=== PATIENT | female | born 1950 | race Caucasian/White ===

== ENCOUNTER 2016-09-12 09:22 | Observation (INO) ==
--- NOTE | 2016-09-12 09:37 | Emergency Department Note ---
Disposition Clinical Impression: Acute kidney injury Diabetes type 2, uncontrolled Qualifiers: Diabetes mellitus complication status: with hyperglycemia Diabetes mellitus buttermaker helper insulin use: with buttermaker helper use Qualified Code(s): E11.65 - Type 2 diabetes mellitus with hyperglycemia; Z79.4 - buttermaker helper (current) use of insulin Disposition: Admitted As Inpatient Condition: Fair Referrals: Adele Martinez [Primary Care Provider] - Forms: ED Satisfaction Letter Time of Disposition: 12:38 Dizziness HPI - General Chief Complaint: ED Dizziness Stated Complaint: fall, dizziness Time Seen by Provider: 09/12/16 09:33 Source: patient Limitations: no limitations Nursing Notes Reviewed: Yes Vital Signs Reviewed: Yes - History of Present Illness HPI Narrative: 65-year-old was over in orthopedics became lightheaded and fell back against the wall onto her bottom. No loss of consciousness. Patient states she's done this in the past. She actually has seen 4 or 5 doctors about this and has had a complete workup including cardiology and neurology. She's been told that they cannot find why she does this. Pt Subjective Complaint: lightheadedness, near syncope Onset (ago): Just MANAGER BAKERY Timing: sudden onset Description: lightheadedness History of similar episodes: Yes History of trauma: No Severity: none Associated symptoms: Denies: chest pain, confusion, diaphoresis, fever, chills, shortness of breath, syncope, weakness, vision changes, nausea, vomiting, palpitations - Related Data Home Medications Medication Instructions Recorded Confirmed Amitriptyline HCl 75 mg PO HS 06/12/16 06/12/16 Aspirin 325 mg PO DAILY 06/12/16 06/12/16 Donepezil [Aricept] 10 mg PO HS 06/12/16 06/12/16 FLUoxetine HCl [Prozac] 20 mg PO DAILY 06/12/16 06/12/16 Insulin ASPART [Novolog] 20 unit SQ TID 06/12/16 06/12/16 Insulin Glargine,Hum.rec.anlog 40 unit SQ BID 06/12/16 06/12/16 [Lantus Solostar] Latanoprost [Xalatan] 1 drop BOTH EYES QPM 06/12/16 06/12/16 Losartan Potassium [Cozaar] 50 mg PO DAILY 06/12/16 06/12/16 Memantine HCl 10 mg PO BID 06/12/16 06/12/16 Metoprolol XL (24 HR) Succ [Toprol 25 mg PO HS 06/12/16 06/12/16 Xl] Previous Rx's Medication Instructions Recorded OxyCODONE Immed Rel [Roxicodone 5 5 - 10 mg PO Q6HR PRN #40 tablet 06/11/16 MG] Allergies Allergy/AdvReac Type Severity Reaction Status Date / Time No Known Allergies Allergy Verified 09/12/16 09:25 Constitutional: Denies: fever, chills, weakness, weight change Eyes: Denies: eye pain, eye discharge, vision change ENT ED: Denies: ear pain, throat pain, dental pain, hearing loss, epistaxis, congestion, dysphagia Cardiovascular: Denies: chest pain, palpitations, dyspnea on exertion, edema, syncope Respiratory: Denies: cough, dyspnea, wheezes, hemoptysis, stridor Gastrointestinal: Denies: abdominal pain, nausea, vomiting, diarrhea, constipation, hematemesis, melena, hematochezia Genitourinary: Denies: dysuria, frequency, hematuria, discharge Musculoskeletal: Denies: back pain, neck pain, arthralgia, myalgia Integumentary: Denies: rash, abrasion, lesions Neurological: Reports: vertigo. Denies: headache, weakness, numbness, paresthesias, confusion, abnormal gait Psychiatric: Denies: anxiety, depression, suicidal thoughts, homicidal thoughts , auditory hallucinations, visual hallucinations Endocrine: Denies: fatigue Hematological/Lymphatic: Denies: easy bleeding, easy bruising Allergic/Immunologic: Denies: facial swelling, urticaria Past Medical History - Past Medical History Medical history: Reports: CHF, CVA, hypertension, kidney stones Psychiatric history: Reports: no psych history - Social History Smoking Status: Never smoker Smokeless Tobacco Status: No Alcohol use: Reports: none Drug use: Reports: none Physical Exam - General Limitations: no limitations General appearance: alert, in no apparent distress - Head Head exam: atraumatic, normocephalic, normal inspection - Eye Eye exam: Present: normal appearance, PERRL, EOMI - ENT ENT exam: normal exam, normal oropharynx, mucous membranes moist - Neck Neck exam: Present: normal inspection, full ROM, trachea midline - Chest Chest inspection: Present: normal inspection, symmetric chest wall rise - Respiratory Respiratory exam: Present: normal lung sounds bilaterally - Cardiovascular Cardiovascular exam: Present: regular rate, normal rhythm, normal heart sounds - Abdominal Exam Abdominal exam: Present: soft, Non-Tender. Absent: tenderness, distention, guarding, rebound, rigidity - Extremities Exam Extremities exam: Present: normal inspection, full ROM. Absent: tenderness, pedal edema - Expanded Lower Extremity Exam Neurovascular/Tendon exam: Absent: motor deficit, sensory deficit, tendon deficit Gait: not tested/not observed - Back Exam Back exam: Present: normal inspection, full ROM. Absent: tenderness - Neurological Exam Neurological exam: Present: alert, oriented X3. Absent: motor sensory deficit - Psychiatric Psychiatric exam: Present: normal affect, normal mood - Skin Skin exam: Present: warm, dry, intact, normal color Course Course Narrative: 65-year-old type II diabetic who comes in with dizziness from her orthopedic surgeon's office. Workup here her she has no focal deficits however her glucose is 690 and has acute kidney injury. - Reevaluation(s) Reevaluation #1: I did review lab work from yesterday had an outside facility and her glucose was 509, glucose today is 690. Time: 10:02 - Consultations Consultation #1: Discussed with Dr. Schroeder, admit. Time: 12:29 Vital Signs Temperature 98.1 F 09/12/16 09:23 Pulse Rate 82 09/12/16 09:23 Respiratory Rate 16 09/12/16 09:23 Blood Pressure 128/62 09/12/16 09:23 O2 Sat by Pulse Oximetry 95 09/12/16 09:23 Temperature 98.1 F 09/12/16 09:23 Pulse Rate 78 09/12/16 10:30 Respiratory Rate 16 09/12/16 10:30 Blood Pressure 125/79 09/12/16 10:30 O2 Sat by Pulse Oximetry 94 L 09/12/16 10:30 Oxygen Delivery Oxygen Delivery Room Air Dizziness - Lab Data Result diagrams: 09/12/16 09:40 09/12/16 09:40 Lab Results 09/12/16 09/12/16 09/12/16 Range/Units 09:40 09:40 09:40 WBC 13.0 H (4.3-11.1) K/mcL RBC 4.53 (3.82-4.97) M/mcL Hgb 12.4 (11.5-15.4) g/dL Hct 39.9 (35.3-44.9) % MCV 88.1 (83.0-100.0) fL MCH 27.4 L (28.0-33.3) pg MCHC 31.1 L (31.6-35.5) g/dL RDW 13.8 (11.5-14.5) % Plt Count 303 (140-400) K/mcL MPV 10.0 (9.4-12.4) fL Immature Gran % 0.3 (0-4) % Seg Neutrophils % 60.8 % Lymphocytes % 30.2 % Monocytes % 6.3 % Eosinophils % 2.0 % Basophils % 0.4 % Neutrophils # 7.9 (1.6-8.9) K/mcL Lymphocytes # 3.9 (0.6-4.6) K/mcL Monocytes # 0.8 (0.0-1.3) K/mcL Eosinophils # 0.3 (0.0-0.6) K/mcL Basophils # 0.1 (0.0-0.2) K/mcL Sodium 135 L (136-145) mEq/L Potassium 4.5 (3.5-4.5) mEq/L Chloride 96 L (98-109) mEq/L Carbon Dioxide 29 (19-29) mEq/L BUN 44 H (7-20) mg/dL Creatinine 1.74 H (0.57-1.11) mg/dL Est GFR ( Amer) 35 L (> 60) Est GFR (Non-Af Amer) 29 L (> 60) BUN/Creatinine Ratio 25 (6-26) Glucose 697 H* (70-99) mg/dL POC Glucose (58-89) Calculated Osmolality 324 H (280-300) Calcium 9.5 (8.6-10.8) mg/dL Troponin I 0.01 (0-0.03) ng/mL Beta-Hydroxybutyric Acd 0.19 (0.02-0.27) mmol/L Urine Color (Yellow) Urine Clarity (Clear) Urine pH (5.0-8.0) pH Units Ur Specific [place] (1.010-1.025) Urine Protein (Neg-Trace) mg/dL Urine Glucose (UA) (Normal) mg/dL Urine Ketones (Negative) mg/dL Urine Blood (Negative) Urine Nitrite (Negative) Urine Bilirubin (Negative) Urine Urobilinogen (Normal) mg/dL Ur Leukocyte Esterase (Negative) Ur Culture Indicated? (NO) 09/12/16 09/12/16 09/12/16 Range/Units 10:45 11:43 11:44 WBC (4.3-11.1) K/mcL RBC (3.82-4.97) M/mcL Hgb (11.5-15.4) g/dL Hct (35.3-44.9) % MCV (83.0-100.0) fL MCH (28.0-33.3) pg MCHC (31.6-35.5) g/dL RDW (11.5-14.5) % Plt Count (140-400) K/mcL MPV (9.4-12.4) fL Immature Gran % (0-4) % Seg Neutrophils % % Lymphocytes % % Monocytes % % Eosinophils % % Basophils % % Neutrophils # (1.6-8.9) K/mcL Lymphocytes # (0.6-4.6) K/mcL Monocytes # (0.0-1.3) K/mcL Eosinophils # (0.0-0.6) K/mcL Basophils # (0.0-0.2) K/mcL Sodium (136-145) mEq/L Potassium (3.5-4.5) mEq/L Chloride (98-109) mEq/L Carbon Dioxide (19-29) mEq/L BUN (7-20) mg/dL Creatinine (0.57-1.11) mg/dL Est GFR ( Amer) (> 60) Est GFR (Non-Af Amer) (> 60) BUN/Creatinine Ratio (6-26) Glucose (70-99) mg/dL POC Glucose 526 H* 476 H* (58-89) Calculated Osmolality (280-300) Calcium (8.6-10.8) mg/dL Troponin I (0-0.03) ng/mL Beta-Hydroxybutyric Acd (0.02-0.27) mmol/L Urine Color Yellow (Yellow) Urine Clarity Clear (Clear) Urine pH 6.0 (5.0-8.0) pH Units Ur Specific [place] 1.028 H (1.010-1.025) Urine Protein Negative (Neg-Trace) mg/dL Urine Glucose (UA) >=1000 H (Normal) mg/dL Urine Ketones Negative (Negative) mg/dL Urine Blood Negative (Negative) Urine Nitrite Negative (Negative) Urine Bilirubin Negative (Negative) Urine Urobilinogen Normal (Normal) mg/dL Ur Leukocyte Esterase Negative (Negative) Ur Culture Indicated? NO (NO) - EKG Data EKG attestation: Yes I reviewed and interpreted this EKG. EKG shows normal: sinus rhythm Rate: normal Rhythm: NSR Interpretation: no acute changes
[2016-09-12 09:47] LABS: Basophils # 0.1 K/mcL (0.0-0.2); Basophils % 0.4 %; Eosinophils # 0.3 K/mcL (0.0-0.6); Hematocrit 39.9 % (35.3-44.9); Hemoglobin 12.4 g/dL (11.5-15.4); Immature Granulocytes % 0.3 % (0-4); Lymphocytes # 3.9 K/mcL (0.6-4.6); Lymphocytes % 30.2 %; Mean Corpuscular HGB Conc 31.1 g/dL (31.6-35.5); Mean Corpuscular Hemoglobin 27.4 pg (28.0-33.3); Mean Corpuscular Volume 88.1 fL (83.0-100.0); Monocytes # 0.8 K/mcL (0.0-1.3); Monocytes % 6.3 %; Neutrophils # 7.9 K/mcL (1.6-8.9); Platelet Count 303 K/mcL (140-400); Red Blood Count 4.53 M/mcL (3.82-4.97); Red Cell Distribution Width 13.8 % (11.5-14.5); Segmented Neutrophils % 60.8 %
[2016-09-12 09:58] LABS: Calcium 9.5 mg/dL (8.6-10.8); Potassium 4.5 mEq/L (3.5-4.5)
[2016-09-12 10:22] LABS: Beta-Hydroxybutyric Acid 0.19 mmol/L (0.02-0.27)
[2016-09-12] MEDS ORDERED: Insulin Regular, Human 100 UNIT/ML IV ONE (10:36)
[2016-09-12] MEDS ORDERED: 0.9 % Sodium Chloride 500 ML IVC ONE (10:36)
[2016-09-12 10:51] LABS: Bilirubin,Urine Negative (Negative); Blood,Urine Negative (Negative); Clarity,Urine Clear (Clear); Color,Urine Yellow (Yellow); Glucose,Urine (UA) >=1000 mg/dL (Normal); Ketones,Urine Negative (Negative); Leukocyte Esterase,Urine Negative (Negative); Nitrite,Urine Negative (Negative); Protein,Urine Negative (Neg-Trace); Specific Gravity,Urine 1.028 (1.010-1.025); Urobilinogen,Urine Normal (Normal)
[2016-09-12] MEDS ORDERED: Naloxone 0.4 MG/ML INJ IVP PRN (13:50)
[2016-09-12] MEDS ORDERED: *HR* Dextrose 50 % in Water (Syg) 50 ML SYRINGE IVP PRN (13:52)
[2016-09-12] MEDS ORDERED: Dextrose Gel 15 GM PO PRN ×2 (13:52)
[2016-09-12] MEDS ORDERED: D5% in Water 1,000 ML IV PRN (13:52)
[2016-09-12] MEDS ORDERED: 0.9 % Sodium Chloride 1,000 ML IVC SCH (14:00)
--- NOTE | 2016-09-12 14:04 | Internal Med History&Physical ---
Date of Encounter: 09/12/16 Time of Encounter: 14:03 Assessment and Plan (1) Dizziness Current visit: Yes Status: Acute Possibly secondary to autonomic neuropathy from uncontrolled DM, and hypoglycemia EKG non-ischemic Head CT, CXR unremarkable Obtain Carotid doppler Fall precautions PT/OT review (2) Acute on chronic renal insufficiency Current visit: Yes Status: Acute CKD stage is unknown, possibly stage II per patient history Already received hydration Check renal USS Monitor chem Avoid nephrotoxins (3) CHF (congestive heart failure) Current visit: Yes Status: Chronic No signs of fluid overlaod No JVD, no S3, no edema Will obtain ECHO for records Will monitor as patient is getting IVF Resume home meds-ARB, BB, ASA Qualifiers: Congestive heart failure type: systolic Congestive heart failure chronicity : chronic Qualified Code(s): I50.22 - Chronic systolic (congestive) heart failure (4) Diabetes type 2, uncontrolled Current visit: Yes Status: Chronic Uncontrolled, with hyperglycemia , possibly secondary to non-compliance with diets Basal, prandial, supplemental insulin IVF hydration Patient with no neurologic signs, BOH butyrate is WNL Diabetic diet Monitor FS ACHS senior health educator Qualifiers: Diabetes mellitus complication status: with hyperglycemia Diabetes mellitus regional intermodal truck driver insulin use: with senior care use Qualified Code(s): E11.65 - Type 2 diabetes mellitus with hyperglycemia; Z79.4 - ad terminal makeup operator (current) use of insulin (5) HTN (hypertension) Current visit: Yes Status: Chronic Resume home meds Qualifiers: Hypertension type: essential hypertension Qualified Code(s): I10 - Essential (primary) hypertension (6) Hypothyroidism Current visit: Yes Status: Chronic Clinically euthyroid Resume synthroid Check TSH a.m Qualifiers: Qualified Code(s): E03.9 - Hypothyroidism, unspecified Internal Medicine - H&P: HPI Chief complaint: Dizziness, fall Admitted From: Home Plans for Post Hospital Care: Home History of present illness: Ms. 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 She hit her head but denies any LOC, she denies syncope, she was aware she fell and remembers all preceding events. She denies chest pain, palpitation, feeling of impending doom, diaphoresis prior to fall She reports feeling dizzy prior to incident. No convulsive-like movements, no tongue biting Patient reports prior hx of same with multiple work-ups in the past including Carotid doppler and ECHO last done 3 months ago with ECHO showing CHF (improved from E 20s to 40s per patient). She denies recent falls, no headaches She also has a recent diagnosis of dementia for which she is taking medications. She reports polyuria,polydipsia in recent few days. DM has been uncontrolled but she is complaint with meds Denies other symptoms She is full code Past Med Surg Social Fam HX - Past Medical History Medical history: CHF, CVA, hypertension, kidney stones Psychiatric history: no psych history - Past Surgical History Surgical History: orthopedic, other (R shoulder arthroplasty) - Social History Smoking Status: Never smoker Smokeless Tobacco Status: No Alcohol use: none Drug use: none Internal Medicine - H&P: Meds OxyCODONE Immed Rel [Roxicodone 5 MG] 5 - 10 mg PO Q6HR PRN #40 tablet 06/11/16 [Rx] Aspirin 325 mg PO DAILY 06/12/16 [History] Donepezil [Aricept] 10 mg PO HS 06/12/16 [History] FLUoxetine HCl [Prozac] 20 mg PO DAILY 06/12/16 [History] Insulin ASPART [Novolog] 20 unit SQ TID 06/12/16 [History] Insulin Glargine,Hum.rec.anlog [Lantus Solostar] 40 unit SQ BID 06/12/16 [ History] Latanoprost [Xalatan] 1 drop BOTH EYES QPM 06/12/16 [History] Losartan Potassium [Cozaar] 50 mg PO DAILY 06/12/16 [History] Memantine HCl 10 mg PO DAILY 06/12/16 [History] Metoprolol XL (24 HR) Succ [Toprol Xl] 25 mg PO HS 06/12/16 [History] Amitriptyline [Elavil] 50 mg PO HS 09/12/16 [History] Cyclobenzaprine HCl 5 mg PO DAILY 09/12/16 [History] Levothyroxine [Synthroid] 150 mcg PO DAILY 09/12/16 [History] Allergies Hydromorphone [From Dilaudid] Adverse Reaction (Verified 09/12/16 13:53) See Comments "with full dose i wake up feeling like i can't breath, I'm ok with a half dose " All Systems PM: A 10-system review of systems was performed and is negative for pertinent findings except as documented above in the HPI. - Constitutional Constitutional: no chills, no fever(s), no night sweats - EENT Eyes: no change in vision, no discharge, no pain, no photophobia Nose, mouth and throat: no dysphagia, no nasal discharge, no neck pain, no sore throat - Cardiovascular Cardiovascular ROS IM: lightheadedness, no chest pain, no diaphoresis, no dyspnea, no palpitations, no syncope - Respiratory Respiratory: no cough, no dyspnea, no wheezing, no excessive phlegm production - Gastrointestinal Gastrointestinal: no abdominal pain, no diarrhea, no hematemesis, no hematochezia, no melena, no nausea, no vomiting - Genitourinary Genitourinary: no change in urinary stream, no dysuria, no flank pain, no hematuria - Musculoskeletal Musculoskeletal ROS IM: as per HPI - Integumentary Integumentary IM: as per HPI - Neurological Neurological ROS: as per HPI - Endocrine Endocrine IM: polydipsia, polyuria - Constitutional Vitals: Temp Pulse Resp BP Pulse Ox 98.1 F 69 16 124/74 96 09/12/16 09:23 09/12/16 13:00 09/12/16 13:00 09/12/16 13:00 09/12/16 13:00 Orthostatic vital signs HR/BP sitting 74, 156/82, HR/BP standing 80, 152/75. General appearance: Present: A&O X 3, pleasant, no acute distress - Head Head exam: Present: atraumatic - Eye Eye exam: Present: PERRL, conjuntiva pink, sclera anicteric - ENT ENT exam: Present: mucous membranes moist - Neck Neck exam general surgery: Present: supple, trachea midline. Absent: lymphadenopathy - Respiratory Respiratory exam: Present: CTAB. Absent: accessory muscle use, rales, rhonchi, wheezes - Cardiovascular Cardiovascular exam: Present: RRR, +S1, +S2, systolic murmur. Absent: diastolic murmur, gallop, JVD, rubs - GI/Abdominal GI/Abdominal exam: Present: normal bowel sounds, soft, no peritoneal signs. Absent: distended, tenderness - Extremities Exam Extremities exam: Present: warm, radial pulses palpable and symetrical. Absent : calf tenderness, cyanotic, pedal edema - Neurological Exam Neurological exam: Present: CN II-XII intact, oriented X3, no focal deficits. Absent: pronater drift, facial droop, speech deficit - Skin Skin exam: Present: dry Internal Med - H&P Results - Labs CBC & Chem 7: 09/12/16 09:40 09/12/16 09:40 - EKG Data -: EKG Interpreted by Myself EKG shows normal: sinus rhythm (NSR), ST-T waves (No St segment elevation or depression) Rate: normal - EKG Data Prior EKG available for review: no Interpretation IM: normal EKG
[2016-09-12] MEDS: *HR* Heparin 5,000 UNIT/ML VIAL SQ SCH (16:39)
[2016-09-12] MEDS: Insulin LISPRO 300 UNITS/3 ML VIAL SQ SCH ×2 (16:43→16:44)
[2016-09-12] MEDS ORDERED: Latanoprost 2.5 ML BOTTLE BOTH EYES SCH (18:00)
[2016-09-12] MEDS ORDERED: Insulin DETEMIR 100 UNIT/ML X5UNITS SQ SCH (21:00)
[2016-09-12] MEDS ORDERED: Metoprolol XL (24 HR) Succ 25 MG TAB.ER.24H PO SCH (21:00)
[2016-09-12] MEDS ORDERED: Insulin LISPRO 300 UNITS/3 ML VIAL SQ SCH (21:00)
[2016-09-12] MEDS: *HR* OxyCODONE Immed Rel 5 MG TABLET PO PRN (21:20)
[2016-09-12] MEDS ORDERED: *HR* Morphine 2 MG/ML SYRINGE IVP ONE (23:55)
[2016-09-13] MEDS: *HR* Heparin 5,000 UNIT/ML VIAL SQ SCH ×2 (00:08→08:08)
[2016-09-13] MEDS: *HR* OxyCODONE Immed Rel 5 MG TABLET PO PRN (03:43)
[2016-09-13 06:44] LABS: Basophils % 0.4 %; Eosinophils # 0.3 K/mcL (0.0-0.6); Eosinophils % 2.6 %; Hematocrit 34.7 % (35.3-44.9); Hemoglobin 10.9 g/dL (11.5-15.4); Immature Granulocytes % 0.3 % (0-4); Lymphocytes # 4.9 K/mcL (0.6-4.6); Lymphocytes % 48.2 %; Mean Corpuscular HGB Conc 31.4 g/dL (31.6-35.5); Mean Corpuscular Hemoglobin 27.3 pg (28.0-33.3); Mean Platelet Volume 10.3 fL (9.4-12.4); Monocytes # 0.7 K/mcL (0.0-1.3); Neutrophils # 4.2 K/mcL (1.6-8.9); Platelet Count 227 K/mcL (140-400); Red Blood Count 3.99 M/mcL (3.82-4.97); Red Cell Distribution Width 13.7 % (11.5-14.5); Segmented Neutrophils % 41.5 %
[2016-09-13 06:58] LABS: Calcium 8.8 mg/dL (8.6-10.8); Potassium 4.3 mEq/L (3.5-4.5)
[2016-09-13 07:01] LABS: Hemoglobin A1C 13.1 %
[2016-09-13 07:21] LABS: Thyroid Stimulating Hormone 0.236 mcIU/mL (0.350-4.840)
--- NOTE | 2016-09-13 07:37 | Carotid Imaging Report ---
Carotid Duplex Patient Name:El Caldwell Order Number:[id number] Procedure Date:09/12/2016 Date:1950Age:65 yrs Gender:Female Lt BP:164 / 81 mmHg Rt.BP:161 / 67 mmHgHeart Rate: Location:[facility] Room #: 2A25 Book Shelver:Selena Davis Referring MD:Luis F Schroeder MD plant breeder scientist:DO Anderson Hawkins MD:Sam Ball MD Primary Indications:dizziness Risk Factors Yes/No Hypertension Yes Diabetes Yes Hx of CVA Yes Impressions: The right carotid artery has minimal plaque throughout. The left internal carotid artery has a 60-79% stenosis. Recommendations: Risk factor reduction. Further evaluation recommended if clinically indicated. Follow-up carotid duplex in 6 months. After imaging the patient returned to their room. Findings Carotid Duplex: Right: The right proximal common carotid artery has a PSV of 70 cm/s and a EDV of 16 cm/s. The right mid common carotid artery has a PSV of 74 cm/s and a EDV of 17 cm/s. The right distal common carotid artery has a PSV of 66 cm/s and a EDV of 17 cm/s. There is nonstenotic plaque in the right bifurcation with a PSV of 60 cm/s and a EDV of 19 cm/s. The right proximal internal carotid artery has a PSV of 77 cm/s and a EDV of 20 cm/s. The right mid internal carotid artery has a PSV of 89 cm/s and a EDV of 35 cm/s. The right distal internal carotid artery has a PSV of 89 cm/s and a EDV of 31 cm/s. The right eca has a PSV of 88 cm/s and a EDV of 11 cm/s. The right vertebral artery has a PSV of 43 cm/s and a EDV of 12 cm/s. Left: The left proximal common carotid artery has a PSV of 76 cm/s and a EDV of 16 cm/s. The left mid common carotid artery has a PSV of 60 cm/s and a EDV of 16 cm/s. The left distal common carotid artery has a PSV of 51 cm/s and a EDV of 13 cm/s. The left bifurcation has a PSV of 66 cm/s and a EDV of 16 cm/s. There is 60-79% stenosis in the left proximal internal carotid artery with a PSV of 239 cm/s and a EDV of 53 cm/s. There is smooth, heterogeneous calcified plaque. There is 60-79% stenosis in the left mid internal carotid artery with a PSV of 223 cm/s and a EDV of 61 cm/s. There is smooth, heterogeneous calcified plaque. There is 60-79% stenosis in the left distal internal carotid artery with a PSV of 154 cm/s and a EDV of 46 cm/s. The left eca has a PSV of 84 cm/s and a EDV of 10 cm/s. The left vertebral artery has a PSV of 36 cm/s and a EDV of 9 cm/s. Prior Study: No prior study available for comparison. Carotid Results Right PSV EDV Assessment Proximal CCA 70 16 Normal Mid CCA 74 17 Normal Distal CCA 66 17 Normal Bifurcation 60 19 Non Stenotic Plaque Proximal ICA 77 20 Normal Mid ICA 89 35 Normal Distal ICA 89 31 Normal ECA 88 11 Normal Vertebral Artery 43 12 Normal Left PSV EDV Assessment Proximal CCA 76 16 Normal Mid CCA 60 16 Normal Distal CCA 51 13 Normal Bifurcation 66 16 Normal Proximal ICA 239 53 60-79% stenosis Mid ICA 223 61 60-79% stenosis Distal ICA 154 46 60-79% stenosis ECA 84 10 Normal Vertebral Artery 36 9 Normal Ratio's Updated by Sam Ball MD on 09/13/2016 7:28:06 AM electronically signed on 09/13/2016 7:31:14 AM with status of Final
[2016-09-13] MEDS: Insulin LISPRO 300 UNITS/3 ML VIAL SQ SCH ×4 (08:12→11:49)
[2016-09-13] MEDS ORDERED: Aspirin Enteric Coated 81 MG Tablet PO SCH (09:00)
[2016-09-13] MEDS ORDERED: FLUoxetine 20 MG CAPSULE PO SCH (09:00)
--- NOTE | 2016-09-13 09:34 | ECHO - Doppler Report ---
Echocardiogram Name: El Caldwell Date of Study: 09/12/2016 Date: 1950 Ht: 64.0 in Medical Record#: [id number] Age: 65 Wt: 197.0 lb Gender: Female BSA: 1.94 Order #: [id number] Location: [facility] Room #: 2A25 Reading Physician: Avelina Grey DO Linemarker: Selena Davis Ordering Physician: Luis F Schroeder MD Primary Physician: Adele Martinez DO Indications: History of Congestive heart failure Impressions: LVEF 35-40%. Left ventricle is mildly dilated. There is evidence of mild diastolic dysfunction of the left ventricle. Normal right ventricular size and function. No significant valvular dysfunction. No pulmonary hypertension. Left Ventricular Wall Motion: Rest Echo Findings The apex, apical inferior, mid inferior, basal inferior, apical anterior, mid anterior, basal anterior, apical septal, mid inferior septal, basal inferior septal, apical lateral, mid anterior lateral, basal anterior lateral, mid anterior septal, mid inferior lateral, basal anterior septal and basal inferior lateral cohen were hypokinetic. Findings: Study Quality * Technically adequate exam. ECG Findings * Normal sinus rhythm. Left Atrium * Normal left atrial size. Mitral Valve * Normal mitral valve structure. * No mitral stenosis. * Trace mitral regurgitation. Aortic Valve * No aortic regurgitation. * Trileaflet aortic valve. * Mildly calcified aortic valve leaflets. * No aortic stenosis. Tricuspid Valve * Tricuspid valve not well visualized. * Trace tricuspid regurgitation. * Estimated RA pressure is 3 mmHg. * Estimated RVSP is 21 mmHg. * No pulmonary hypertension. Pulmonic Valve * Pulmonic valve is not well visualized. * No pulmonic stenosis. * No pulmonic regurgitation. Pulmonary Artery * Pulmonary artery not well visualized. Right Ventricle * Normal right ventricular structure and function. Right Atrium * Normal right atrial size. Left Ventricle * Mild left ventricular diastolic dysfunction. * Mildly dilated left ventricle. * LVEF 35-40%. Interatrial Septum * No evidence of PFO by color Doppler. IVC * Normal IVC dimensions and inspiratory collapse. Pericardium * There is no pericardial effusion present. Aorta * Normally sized aortic root. History Hypertension Diabetes Congestive Heart Failure Measurements: BP: 161/ 67 2D Normal Values IVSd: .80 cm 0.6 - 1.0 cm LVIDd: 5.50 cm 3.7 - 5.6 cm LVPWd: 1.00 cm 0.6 - 1.1 cm LVIDs: 4.20 cm 1.5 - 3.6 cm AO: 2.20 cm < 4.0 cm LA: 4.10 cm 2.0 - 4.0cm %FS: 23.60 cm >25 % LA volume: 42 Mitral Valve Peak E:.50 m/sec Peak A:1.05 m/sec E/A Ratio:0.5 Peak E' Lat Donta:5.46 cm/s Peak E' Med Donta:3.61 cm/s E/E' Lat Ratio:9.2 E/E' Med Ratio:13.9 Tricuspid Valve TV Regurg Peak Grad: 18.00mmHg TV Regurg Peak Donta: 2.13m/sec Updated by Avelina Grey on 09/13/2016 9:28:05 AM electronically signed on 09/13/2016 9:29:22 AM with status of Final Wall Motion Scott: 1=Normal, 2=Hypokinesis, 3=Akinesis, 4=Dyskinesis, 5=Aneurysmal, 6=Hyperkinetic, X=Not Visualized (Blank)=Missing
[2016-09-13] MEDS ORDERED: 0.9 % Sodium Chloride 1,000 ML ONE (10:23)
[2016-09-13] MEDS ORDERED: 0.9 % Sodium Chloride 1,000 ML IVC SCH (10:30)
[2016-09-13 13:30] VITALS: BP 127/65
--- NOTE | 2016-09-13 13:34 | Electrocardiograph Report ---
[facility] Test Date: 2016-09-12 Pat Name: El Caldwell Department: 102 Room: 2A25 Gender: F Apprentice: Msc : 1950 Requested By: Jemal Modi Order Number: [id number] Reading MD: Cady Richard Measurements Intervals Susan Rate: 84 P: 38 NJ: 179 QRS: -7 QRSD: 114 T: 81 QT: 398 QTc: 438 Interpretive Statements SINUS RHYTHM POSSIBLE LEFT VENTRICULAR HYPERTROPHY [VOLTAGE CRITERIA PLUS LAE OR QRS WIDENING] ST DEVIATION AND MODERATE T-WAVE ABNORMALITY, CONSIDER LATERAL ISCHEMIA [-0.1+ mV T WAVE IN I/aVL/V5/V6] Electronically Signed On 09-13-16 13:33:22 EST by Cady Richard
--- NOTE | 2016-09-13 14:29 | Discharge Summary ---
Date of Encounter: 09/13/16 Time of Encounter: 14:27 - Discharge Diagnosis (1) Orthostatic hypotension Priority: Primary Status: Acute Comments: This is likely secondary to volume depletion from uncontrolled diabetes and hyperosmolar state. Orthostatic vitals were positive. She was given intravenous normal saline bolus, with improvement of her symptoms and orthostatic hypotension. I recommended the patient, close follow-up with her primary care physician to adjust her insulin and management of diabetes. (2) Type 2 diabetes mellitus with hyperosmolarity without nonketotic hyperglycemic-hyperosmolar coma (nkhhc) Priority: Secondary Status: Acute Comments: Increased the dose of insulin and advised close follow-up with her primary care physician for titration of her insulin and possible referral to orthoptist (3) Acute on chronic renal insufficiency Priority: Secondary Status: Acute Comments: This is likely secondary to volume depletion from uncontrolled diabetes and hyperosmolar state. Orthostatic vitals were positive. She was given intravenous normal saline bolus, with improvement of her symptoms and orthostatic hypotension. I recommended the patient, close follow-up with her primary care physician to adjust her insulin and management of diabetes. (4) Diabetes type 2, uncontrolled Priority: Secondary Status: Chronic Comments: Hemoglobin A1c is 13.1%. Increased the dose of insulin and advised close follow -up with her primary care physician for titration of her insulin and possible referral to orthoptist. Diabetes education was offered Qualifiers: Diabetes mellitus complication status: with hyperglycemia Diabetes mellitus senior living insulin use: with senior living use Qualified Code(s): E11.65 - Type 2 diabetes mellitus with hyperglycemia; Z79.4 - ad terminal makeup operator (current) use of insulin (5) HTN (hypertension) Priority: Secondary Status: Chronic Qualifiers: Hypertension type: essential hypertension Qualified Code(s): I10 - Essential (primary) hypertension (6) Hypothyroidism Priority: Secondary Status: Chronic Qualifiers: Qualified Code(s): E03.9 - Hypothyroidism, unspecified (7) CHF (congestive heart failure) Priority: Secondary Status: Chronic Comments: Echocardiogram showed LV ejection fraction of 35-40% Qualifiers: Congestive heart failure type: systolic Congestive heart failure chronicity : chronic Qualified Code(s): I50.22 - Chronic systolic (congestive) heart failure (8) Carotid stenosis, left Priority: Secondary Status: Chronic Comments: Carotid duplex showed 60-79% stenosis of the left internal carotid artery. Patient apparently had TIA affecting right side of the body. She reports that she is being followed by diesel fleet mechanic. will defer follow up to the PCP / diesel fleet mechanic. She indicated that she was taking cholesterol medication prior to this admission. No statin was noted on home medications list. PCP to please consider starting a statin, if she was not on a statin. - Discharge Medications Home Medications: OxyCODONE Immed Rel [Roxicodone 5 MG] 5 - 10 mg PO Q6HR PRN #40 tablet 06/11/16 [Rx] Aspirin 325 mg PO DAILY 06/12/16 [History] Donepezil [Aricept] 10 mg PO HS 06/12/16 [History] FLUoxetine HCl [Prozac] 20 mg PO DAILY 06/12/16 [History] Insulin ASPART [Novolog] 25 unit SQ TID 06/12/16 [History] Insulin Glargine,Hum.rec.anlog [Lantus Solostar] 40 unit SQ BID 06/12/16 [ History] Latanoprost [Xalatan] 1 drop BOTH EYES QPM 06/12/16 [History] Memantine HCl 10 mg PO DAILY 06/12/16 [History] Metoprolol XL (24 HR) Succ [Toprol Xl] 25 mg PO HS 06/12/16 [History] Cyclobenzaprine HCl 5 mg PO DAILY 09/12/16 [History] Levothyroxine [Synthroid] 150 mcg PO DAILY 09/12/16 [History] Allergies/Adverse Reactions: Allergies Hydromorphone [From Dilaudid] Adverse Reaction (Verified 09/12/16 13:53) See Comments "with full dose i wake up feeling like i can't breath, I'm ok with a half dose " Procedures/tests Complete & Pending: Procedures Performed prior 72 hours Category Date Time Status Retroperitoneal Ultrasound - Complete [US Exams 09/12/16 18:00 Draft retroperitoneal comp] [US] Routine EV carotid duplex imaging BI Routine Y 09/12/16 14:29 Completed EV echocardiogram Routine Y 09/12/16 13:51 Completed Transthoracic Echocardiogram showed LV ejection fraction of 35-40% ITS Impressions Chest X-Ray 09/12/16 09:33 IMPRESSION: Minimal left basilar atelectasis. Otherwise no acute cardiopulmonary findings. D/ / Janeth Gibbs MD / Janeth Gibbs MD Interpreting Provider: Janeth Gibbs MD Head CT 09/12/16 09:33 IMPRESSION: No acute intracranial abnormality. D/ / Vicente Blue MD / Vicente Blue MD Interpreting Provider: Vicente Blue MD Retroperitoneum Ultrasound 09/12/16 18:00 IMPRESSION: 1. Areas of renal parenchymal thinning bilaterally can be seen in the setting of medical renal disease. 2. No hydronephrosis. D/ / 09/12/2016 18:39:50 Jun Gibbs MD / mark Interpreting Provider: Jun Gibbs MD - Notes to Outpatient Provider Please consider close outpatient follow-up for diabetes management / referral to endocrinology. Please consider referral for sleep study, as she has symptoms concerning for obstructive sleep apnea. please consider starting a statin, if she was not on a statin. Date of admission: 09/12/16 13:45 Primary care physician: Adele Martinez Consults: 09/12/16 13:52 Consult to Nurses' Registry Director [CONS] Routine Comment: 09/12/16 13:56 Consult to Occupational Therapy [CONS] Routine Comment: Evaluate, develop and implement POC Consult to Physical Therapy [CONS] Routine Comment: Evaluate, develop and implement POC Discharging clinician: Ruddy Geiger Anticipated date of discharge: 09/13/16 - Patient Status Disposition: Home, Self-Care Condition: Good Functional capacity at discharge: independent ambulation Overall status at discharge: patient is back to baseline - Discharge Instructions Instructions: Diabetes Mellitus Type 2 in Adults (DC), Chronic Hypertension (DC ) Follow Up With: Adele Martinez [Primary Care Provider] - Additional Instructions: Follow up with PCP in 7 days for management of diabetes mellitus; orthostatic hypotension - Diet and Activity Activity: increase activity as tolerated Diet: diabetic diet Interval History: 65-year-old female with the history of uncontrolled diabetes, neuropathy, CKD (unknown stagin) systolic CHF - presented to the emergency department with a history of dizziness and fall, when she stood up for x-ray in orthopedic office. She denied loss of consciousness. She had negative troponin. Serum glucose 697 and creatinine was 1.74. EKG showed sinus rhythm. Chest x-ray showed mild left basilar atelectasis. CT head showed no acute intracranial abnormality. Echocardiogram showed LVEF of 35-40%. That is evidence of mild diastolic dysfunction of left ventricle. Carotid Doppler showed 60-79% stenosis of left internal carotid artery. Renal ultrasound showed no hydronephrosis. Orthostatic hypotension/acute kidney injury : Orthostatic vitals were positive. This is likely secondary to volume depletion from uncontrolled diabetes and hyperosmolar state. She was given intravenous normal saline bolus, with improvement of her symptoms and orthostatic hypotension. I recommended the patient, close follow-up with her primary care physician to adjust her insulin and management of diabetes. Her Hemoglobin A1c is 13.1%. Increased the dose of insulin and advised close follow-up with her primary care physician for titration of her insulin and possible referral to orthoptist. Diabetes education was offered. Carotid duplex showed 60-79% stenosis of the left internal carotid artery. Patient apparently had TIA affecting right side of the body. She reports that she is being followed by diesel fleet mechanic. will defer follow up to the PCP / diesel fleet mechanic. She indicated that she was taking cholesterol medication prior to this admission. No statin was noted on home medications list. PCP to please consider starting a statin, if she was not on a statin. Hospital course: 65-year-old female with past medical history significant for uncontrolled diabetes mellitus, security with unknown staging, systolic CHF, hypertension and hypothyroidism. She was apparently in orthopedic office and she fell down when she stood up for an x-ray, without loss of consciousness. She was hyperglycemic with serum glucose of 697, creatinine was 1.74 and troponin was 0.01. Urinalysis was negative for UTI. Her EKG showed sinus rhythm. She had evidence of orthostatic hypotension and was treated with intravenous normal saline bolus, the improvement of orthostatic hypotension and creatinine. Patient felt significantly improved and discharge time. Her insulin dose was increased to novolog 25 units TID. Diabetes education offered. She was counseled for close outpatient follow-up with her primary care physician for good glycemic control or endocrinology referral. Carotid duplex showed 60-79% stenosis of the left internal carotid artery. Patient apparently had TIA affecting right side of the body in the past. She reports that she is being followed by diesel fleet mechanic, who is monitoring carotid stenosis. will defer follow up to the PCP / diesel fleet mechanic. She indicated that she was taking cholesterol medication prior to this admission. No statin was noted on home medications list. PCP to please consider starting a statin, if she was not on a statin. She reported poor sleep and episodes of jerking while sleeping. Clinically suspicious for obstructive sleep apnea and recommended her to follow-up with her primary care physician for outpatient sleep study. - Time Spent with Patient Total time spent providing and/or coordinating discharge services: - Constitutional Vitals: Temp Pulse Resp BP Pulse Ox 98.2 F 71 16 127/65 96 09/13/16 06:54 09/13/16 13:28 09/13/16 06:54 09/13/16 13:28 09/13/16 06:54 Exam: General: Not in acute distress at the time of my evaluation Lungs: Clear to auscultation Cardiac: Regular rate and rhythm. No significant murmurs Abdomen: Soft, non tender. Bowel sounds present Neurological: No gross localizing deficits Psych: Not agrressive or agitated Extremities: no significant leg edema Skin: No generalized rash
[2016-09-13 15:20] LABS: Chol/HDL Ratio 8.4 (0-4.9); Cholesterol 160 mg/dL (< 200); HDL Cholesterol 19 mg/dL (40-59); Triglycerides 543 mg/dL (< 150)
== END 2016-09-13 16:28 | disposition home or self-care (01) ==
LOC: 2ANU 09:22 → EMEROO 09:22 → 2ANU 14:24
PROVIDERS: ADMIT Internal Medicine; ATTEND Internal Medicine